=== PATIENT | male | born 1940 | race Caucasian/White ===

== ENCOUNTER 2018-08-01 10:14 | Inpatient (IN) | payer MEDICARE, OTHER ==
[2018-08-01] MEDS ORDERED: DILTIAZEM DRIP BOLUS FROM BAG 1 MG SOLN IV ONE ×2 (10:36→18:31)
[2018-08-01] MEDS ORDERED: SODIUM CHLORIDE 0.9% 1,000 ML IV STA (10:36)
[2018-08-01] MEDS ORDERED: ASPIRIN 81 MG PO STA (10:36)
[2018-08-01] MEDS ORDERED: HEPARIN SODIUM,PORCINE 5,000 UNIT/ML 1 ML VIAL IV ONE (10:39)
--- NOTE | 2018-08-01 10:39 | ED ---
Chest Pain HPI - General Chief Complaint: Chest Pain Stated Complaint: chest pain Time Seen by Provider: 08/01/18 10:26 Source: patient, RN notes reviewed Mode of arrival: ambulatory Limitations: no limitations - History of Present Illness Initial Comments: This is a 77-year-old male with no prior history of heart or lung disease was a nonsmoker who states he had the onset around 12 noon yesterday of a feeling of a heavy weight on his midsternal area. This did persist throughout the afternoon yesterday is currently gone we also noticed palpitations. He was seen by his doctor today and sent here for further evaluation. He denies any headache currently chest pain fevers chills nausea vomiting sweats he states at the time it happened he was shoveling mud admixture dirt and cold wet leaves. No cough or phlegm production no other symptoms reported this time no other modifying factors. He has no prior history of heart disease. MD Complaint: chest pain, other - Related Data Allergies Allergy/AdvReac Type Severity Reaction Status Date / Time Penicillins Allergy Unknown Verified 08/01/18 10:19 Sulfa (Sulfonamide Allergy Unknown Verified 08/01/18 10:19 Antibiotics) Review of Systems ROS Statement: Those systems with pertinent positive or pertinent negative responses have been documented in the HPI. ROS Other: All systems not noted in ROS Statement are negative. EKG Findings - EKG Results: EKG: interpreted by ALYSON (Atrial fibrillation with rapid ventricular response rate of 151 QRS duration 84 QT/QTC 292/462) Past Medical History Past Medical History: No Reported History History of Any Multi-Drug Resistant Organisms: None Reported Additional Past Surgical History / Comment(s): right shoulder Past Psychological History: No Psychological Hx Reported Smoking Status: Never smoker Past Alcohol Use History: Occasional Past Drug Use History: None Reported General Exam - General Exam Comments Initial Comments: This is a well-developed wall nourished awake alert oriented 3 male Limitations: no limitations General appearance: alert, in no apparent distress Head exam: Present: atraumatic, normocephalic, normal inspection Eye exam: Present: normal appearance, PERRL, EOMI. Absent: scleral icterus, conjunctival injection, periorbital swelling ENT exam: Present: normal exam, mucous membranes moist Neck exam: Present: normal inspection. Absent: tenderness, meningismus, lymphadenopathy Respiratory exam: Present: normal lung sounds bilaterally. Absent: respiratory distress, wheezes, rales, rhonchi, stridor Cardiovascular Exam: Present: tachycardia, irregular rhythm. Absent: systolic murmur, diastolic murmur, rubs, gallop, clicks GI/Abdominal exam: Present: soft, normal bowel sounds. Absent: distended, tenderness, guarding, rebound, rigid Extremities exam: Present: normal inspection, full ROM, normal capillary refill. Absent: tenderness, pedal edema, joint swelling, calf tenderness Back exam: Present: normal inspection Neurological exam: Present: alert, oriented X3, CN II-XII intact Psychiatric exam: Present: normal affect, normal mood Skin exam: Present: warm, dry, intact, normal color. Absent: rash Course Vital Signs 08/01/18 08/01/18 08/01/18 10:15 10:25 10:30 Temperature 98.1 F Pulse Rate 141 H 152 H 161 H Pulse Rate [ Finishing Trimmer ] Respiratory 18 13 9 L Rate Blood Pressure 128/87 121/68 O2 Sat by Pulse 97 73 L 96 Oximetry 08/01/18 08/01/18 08/01/18 10:45 11:00 11:29 Temperature Pulse Rate 158 H Pulse Rate [ 155 H Finishing Trimmer ] Respiratory 21 Rate Blood Pressure 120/58 O2 Sat by Pulse 96 Oximetry 08/01/18 08/01/18 11:48 12:05 Temperature Pulse Rate 138 H 130 H Pulse Rate [ Finishing Trimmer ] Respiratory 18 18 Rate Blood Pressure 98/74 97/79 O2 Sat by Pulse 98 97 Oximetry - Reevaluation(s) Reevaluation #1: 08/01/18 13:06 Reevaluation the patient apparently started the Cardizem reveals some diminishing blood pressure. He did require fluid challenge with correction of his blood pressure. He is asymptomatic at this time he still remains in atrial fibrillation. Chest Pain [facility] The patient was reevaluated on several occasions. He is trending down with respect to his heart rate. He will be admitted I discussed the case with Dr. Montanez. Cardiology will be consulted. The patient is hemodynamically stable at this time. He is asymptomatic but still remains in A. fib with RVR. Critical Care Time Critical Care Time: Yes Critical Care Time: 39 minutes of critical care time which includes initial presentation with history physical labs x-rays reevaluation patient on multiple occasions. Discussed with patient family regarding findings discussion with the admitting physician regarding the findings admission orders and documentation of the above. Disposition Clinical Impression: Rapid atrial fibrillation Disposition: ADMITTED IP TO THIS HOSP Condition: Stable Referrals: Dequan Yanez DO [Primary Care Provider] - 1-2 days
[2018-08-01] MEDS ORDERED: DILTIAZEM 50 MG in SODIUM CHLORIDE 0.9% 40 ML IV SCH (10:45)
[2018-08-01 11:01] LABS: Basophils % (A) 0 %; Eosinophils # (A) 0.1 k/uL (0-0.7); Eosinophils % (A) 2 %; HCT 48.3 % (39.0-53.0); HGB 15.9 gm/dL (13.0-17.5); Lymphocytes # (A) 1.5 k/uL (1.0-4.8); Lymphocytes % (A) 19 %; MCH 32.4 pg (25.0-35.0); MCV 98.2 fL (80.0-100.0); Mean Platelet Volume 7.4; Monocytes # (A) 0.6 k/uL (0-1.0); Monocytes % (A) 7 %; Neutrophils # (A) 5.6 k/uL (1.3-7.7); Neutrophils % (A) 71 %; Platelet Count 188 k/uL (150-450); RBC 4.92 m/uL (4.30-5.90); RDW 13.5 % (11.5-15.5); WBC 7.9 k/uL (3.8-10.6)
[2018-08-01 11:10] LABS: ALT 26 U/L (21-72); AST 24 U/L (17-59); Albumin 3.6 g/dL (3.5-5.0); Alkaline Phosphatase 56 U/L (38-126); Anion Gap 8 mmol/L; Blood Urea Nitrogen 18 mg/dL (9-20); Calcium 9.2 mg/dL (8.4-10.2); Carbon Dioxide 23 mmol/L (22-30); Chloride 109 mmol/L (98-107); Glucose 152 mg/dL (74-99); Partial Thromboplastin Time 22.8 sec (22.0-30.0); Potassium 4.3 mmol/L (3.5-5.1); Prothrombin Time 9.9 sec (9.0-12.0); Sodium 140 mmol/L (137-145); Total Bilirubin 0.7 mg/dL (0.2-1.3); Total Protein 6.4 g/dL (6.3-8.2)
--- NOTE | 2018-08-01 11:17 | XR ---
EXAMINATION TYPE: XR chest 2V DATE OF EXAM: 08/01/2018 HISTORY: dysrhythmia. REFERENCE: NONE. FINDINGS: The heart is normal in size. There is some atelectasis or scarring in the right midlung. Th e lungs are otherwise clear. Pleural spaces are clear. IMPRESSION: SCARRING VERSUS ATELECTASIS, RIGHT MIDLUNG.
[2018-08-01] MEDS: HEPARIN SOD,PORK IN 0.45% NACL 25,000 UNIT in 0.45% NACL 1 500ML.BAG IV SCH (11:37)
[2018-08-01 11:43] LABS: Creatine Kinase MB 2.7 ng/mL (0.0-2.4); Troponin I 0.025 ng/mL (0.000-0.034)
[2018-08-01] MEDS ORDERED: NALOXONE 0.4 MG/ML 1 ML VIAL IV PRN (13:09)
[2018-08-01 14:24] VITALS: BMI 40.2
--- NOTE | 2018-08-01 15:03 | P.HPIM ---
History of Present Illness H&P Date: 08/01/18 Chief Complaint: Chest heaviness Mr. Pimentel is a 77-year-old male with no prior medical history coming to the hospital with a chief complaint of feeling chest heaviness in the midsternal area since yesterday morning. 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 He mentions that he felt like a heavy object sitting on his chest and also he noticed some palpitations. Patient tried to get some rest but still did not get relief from his symptoms. Patient also started to have generalized weakness and felt dizzy. But there is no loss of consciousness. Patient denies having any history of smoking. He drinks alcohol very occasionally. Family history of coronary artery disease in his father and brother. Patient denies having any swelling of his lower extremities. Patient denies having any orthopnea PND. Patient denies having any fevers chills or rigors and no sick contacts. Patient denies having any abdominal pain nausea vomiting or diarrhea. No dysuria or hematuria. No focal weakness slurring of speech. No headaches or blurring of vision. In the Urgency department and the patient was found to have a trial fibrillation with rapid ventricular rate. EKG showing A. fib with heart rate at 1 50 bpm Chest x-ray showing right middle lung atelectasis. Patient has been started on Cardizem drip and heparin and admitted to the hospital for further evaluation and management. Review of Systems REVIEW OF SYSTEMS: PSYCH: No anxiety or depression NEURO:No c/o weakness of the extremties, No facial droop, No speech abnormalities. VASCULAR: no edema HEMATOLOGIC: No history of easy bleeding and bruising . No recent infections . RESPIRATORY: No cough, No SOB, No chest discomfort. IMMUNE: No infections INTEGUMENT: no rashes OPHTHALMOLOGIC: No blurry vision and no eye discharge : No dysuria or hematuria CARDIAC: Per HPI MUSCULOSKELETAL : No Aches or pains in the joints or muscles. GI: No abdominal pain, Nausea or vomiting. No constipation or diarrhea. All 13 review of systems are negative except for the ones mentioned above. Past Medical History Past Medical History: No Reported History History of Any Multi-Drug Resistant Organisms: None Reported Additional Past Surgical History / Comment(s): right shoulder Past Anesthesia/Blood Transfusion Reactions: No Reported Reaction Past Psychological History: No Psychological Hx Reported Smoking Status: Never smoker Past Alcohol Use History: Occasional Past Drug Use History: None Reported - Past Family History Mother Family Medical History: No Reported History Father Family Medical History: Coronary Artery Disease (CAD) Medications and Allergies Allergies Allergy/AdvReac Type Severity Reaction Status Date / Time Penicillins Allergy Unknown Verified 08/01/18 10:19 Sulfa (Sulfonamide Allergy Unknown Verified 08/01/18 10:19 Antibiotics) Physical Exam Vitals: Vital Signs Temp Pulse Pulse Resp BP BP Pulse Ox 08/01/18 14:32 98.3 F 133 H 16 119/80 98 08/01/18 13:55 98.3 F 133 H 16 119/80 98 08/01/18 13:20 97.9 F 133 H 18 104/53 95 08/01/18 13:10 140 H 18 113/77 97 08/01/18 12:50 128 H 20 105/88 98 08/01/18 12:40 146 H 19 103/88 97 08/01/18 12:30 133 H 18 134/82 97 08/01/18 12:20 138 H 18 94/77 95 08/01/18 12:05 130 H 18 97/79 97 08/01/18 11:48 138 H 18 98/74 98 08/01/18 11:29 120/58 08/01/18 11:00 158 H 21 96 08/01/18 10:45 155 H 08/01/18 10:30 161 H 9 L 121/68 96 08/01/18 10:25 152 H 13 73 L 08/01/18 10:15 98.1 F 141 H 18 128/87 97 Intake and Output 07/31/18 08/01/18 08/01/18 22:59 06:59 14:59 Other: Weight 116.5 kg GENERAL EXAM GEN. APPEARANCE: alert, in no apparent distress HEAD EXAM: atraumatic, normocephalic, normal inspection EYE EXAM: normal appearance, PERRL, EOMI. Absent: scleral icterus, conjunctival injection, periorbital swelling ENT EXAM: normal exam, mucous membranes moist NECK EXAM: normal inspection. Absent: tenderness, meningismus, full ROM, lymphadenopathy RESPIRATORY EXAM: normal lung sounds bilaterally. Absent: respiratory distress , wheezes, rales, rhonchi, stridor CARDIOVASCULAR EXAM: Tachycardic. Irregularly irregular GI/ABDOMINAL EXAM: soft, normal bowel sounds. Absent: distended, tenderness, guarding, rebound, rigid EXTREMITIES EXAM: Bilateral pitting edema. More on the left lower extremity than right. NEUROLOGICAL EXAM: alert, oriented X3, no focal neurological deficits PSYCHIATRIC EXAM: normal affect, normal mood SKIN EXAM: warm, dry, intact, normal color. Absent: rash Results CBC & Chem 7: 08/01/18 10:41 08/01/18 10:41 Labs: Abnormal Lab Results - Last 24 Hours (Table) 08/01/18 08/01/18 Range/Units 10:41 10:41 Chloride 109 H (98-107) mmol/L Glucose 152 H (74-99) mg/dL Total Creatine Kinase 243 H (55-170) U/L CK-MB (CK-2) 2.7 H (0.0-2.4) ng/mL Thrombosis Risk Factor Assmnt - Choose All That Apply Any of the Below Risk Factors Present?: No Each Risk Factor Represents 3 Points: Age 75 years or older Thrombosis Risk Factor Assessment Total Risk Factor Score: 3 Thrombosis Risk Factor Assessment Level: Moderate Risk Assessment and Plan Assessment: ASSESSMENT Atrial fibrillation with rapid ventricular rate Chronic bilateral lower extremity edema Right middle lobe atelectasis Morbid obesity with BMI of 40.2 Plan: Patient will be continued on Cardizem drip and heparin drip. We'll get an echocardiogram. We will get a bilateral lower extremity Doppler. Cardiology has been consulted. Further recommendations to follow depending on the progress of the patient. The treatment plan was discussed with the patient and his at the bedside in detail.
[2018-08-01] MEDS: SODIUM CHLORIDE 0.9% 1,000 ML IV SCH (16:14)
--- NOTE | 2018-08-01 17:33 | US ---
EXAMINATION TYPE: US venous doppler duplex LE DATE OF EXAM: 08/01/2018 4:57 PM COMPARISON: US CLINICAL HISTORY: new a fib. bilateral leg pain and swelling, patient on heparin starting today SIDE PERFORMED: Bilateral TECHNIQUE: The lower extremity deep venous system is examined utilizing real time linear array sonog sommer with graded compression, doppler sonography and color-flow sonography. VESSELS IMAGED: External Iliac Vein (EIV) Common Femoral Vein Deep Femoral Vein Greater Saphenous Vein * Femoral Vein Popliteal Vein Small Saphenous Vein * Proximal Calf Veins (* superficial vessels) Deep veins of the right leg show normal compressibility and color-flow, no abnormal luminal echoes. W ithin the left lower extremity deep vein there is abnormal low level internal echo at the femoral vei n which is eccentric, is not completely compressible, there is extension peripherally to the poplitea l vein with lack of compressibility and color flow present at the mid popliteal vein. Some laminar fl ow is noted peripherally and color-flow. Right Leg: Negative for DVT Left Leg: Positive for DVT, non occlusive DVT seen in the mid FV and the pop prox through proximal c long term veins. There is thrombus seen with limited compression. IMPRESSION: Deep venous arthrosis left lower extremity as described. A Red level critical message alert has been initiated for Judi Beyer via the [employer] Results System on 08/01/2018 5:31 PM. This message alert has been sent to Judi Beyer via t he preferences provided by the clinician for the receipt of Radiology Critical Findings. Message ID [id number].
[2018-08-01] MEDS: DILTIAZEM 50 MG in SODIUM CHLORIDE 0.9% 40 ML IV SCH ×2 (19:30→21:09)
--- NOTE | 2018-08-01 19:54 | CT ---
EXAMINATION TYPE: CT angio chest DATE OF EXAM: 08/01/2018 COMPARISON: Chest x-ray same date HISTORY: Current diagnosis of DVT, tachycardia. CT DLP: 624.7 mGycm Automated exposure control for dose reduction was used. CONTRAST: CTA scan of the thorax is performed with IV Contrast, patient injected with 100 mL of Isovue 370, pul monary embolism protocol. MIP images are created and reviewed. 3D reconstructed images are created on an independent workstation and reviewed. FINDINGS: There is some motion, artifact on the exam which may limit sensitivity. LUNGS: The lungs are grossly clear, there is no concerning parenchymal mass or nodule identified. Min imal dependent atelectatic changes are present. There is no pleural effusion or pneumothorax seen. The tracheobronchial tree is patent. AORTA: Root of the aorta measures approximately 4.7 cm. Proximal ascending aorta 4.4 cm. Proximal de scending aorta 4.3 cm.. Aorta is not optimally enhanced. MEDIASTINUM: There is satisfactory enhancement of the pulmonary artery and its central branches, ther e is no CT evidence for pulmonary embolism. Segmental branches are not well visualized and there enti rety however There are no greater than 1 cm hilar or mediastinal lymph nodes. Pulmonary artery is en larged, correlate for possible pulmonary artery hypertension. No pericardial effusion is seen. There are coronary artery calcifications present. The heart is enlarged. OTHER: Low dense foci are present within the liver which statistically are likely to represent cysts . There is a small hiatal hernia. There is elevation of the right hemidiaphragm. IMPRESSION: NO EVIDENT PULMONARY EMBOLISM WITH LIMITATIONS DESCRIBED. AORTIC ANEURYSM. Additional findings abo ve.
[2018-08-01] MEDS: HEPARIN SODIUM,PORCINE 5,000 UNIT/ML 1 ML VIAL IV PRN (20:07)
[2018-08-02] MEDS: DILTIAZEM 50 MG in SODIUM CHLORIDE 0.9% 40 ML IV SCH ×3 (01:28→08:52)
[2018-08-02] MEDS: HEPARIN SOD,PORK IN 0.45% NACL 25,000 UNIT in 0.45% NACL 1 500ML.BAG IV SCH ×2 (04:54→19:17)
[2018-08-02] MEDS: SODIUM CHLORIDE 0.9% 1,000 ML IV SCH ×2 (04:56→16:53)
[2018-08-02 08:15] LABS: Basophils % (A) 0 %; Eosinophils # (A) 0.1 k/uL (0-0.7); Eosinophils % (A) 1 %; HCT 46.3 % (39.0-53.0); HGB 15.1 gm/dL (13.0-17.5); Lymphocytes # (A) 1.5 k/uL (1.0-4.8); Lymphocytes % (A) 15 %; MCH 32.6 pg (25.0-35.0); MCHC 32.5 g/dL (31.0-37.0); MCV 100.1 fL (80.0-100.0); Mean Platelet Volume 7.3; Monocytes # (A) 0.7 k/uL (0-1.0); Monocytes % (A) 7 %; Neutrophils # (A) 7.5 k/uL (1.3-7.7); Neutrophils % (A) 75 %; Platelet Count 203 k/uL (150-450); RBC 4.62 m/uL (4.30-5.90); RDW 13.6 % (11.5-15.5)
[2018-08-02] MEDS: HEPARIN SODIUM,PORCINE 5,000 UNIT/ML 1 ML VIAL IV PRN (08:47)
[2018-08-02 08:56] LABS: Anion Gap 6 mmol/L; Blood Urea Nitrogen 13 mg/dL (9-20); Calcium 8.8 mg/dL (8.4-10.2); Carbon Dioxide 25 mmol/L (22-30); Chloride 107 mmol/L (98-107); Glucose 109 mg/dL (74-99); Potassium 4.3 mmol/L (3.5-5.1); Sodium 138 mmol/L (137-145)
[2018-08-02] MEDS ORDERED: ALPRAZolam 0.5 MG TAB PO PRN (10:49)
[2018-08-02] MEDS ORDERED: ALPRAZolam 0.25 MG TAB PO PRN (10:49)
[2018-08-02] MEDS ORDERED: NITROGLYCERIN SL TABS 0.4 MG TAB SUBLINGUAL PRN (10:49)
--- NOTE | 2018-08-02 11:08 | P.CRDCN ---
History of Present Illness Consult date: 08/02/18 Requesting physician: Judi Beyer Reason for Consult (text): rapid atrial fibrillation Chief complaint: chest heaviness History of present illness: This is a pleasant 77-year-old gentleman who denies significant past medical history but also does not go to doctors regularly. Initially presented to his primary care physician's office due to complaints of midsternal chest heaviness and wooziness with exertion that started a couple days ago. Upon presentation to his primary care physician's office, he was found to be in atrial fibrillation with rapid ventricular response, new onset. He also been complaining of some lower extremity edema that started mostly in his left leg in December after a long trip, apparently she was seen by primary care and told there was no issues. Chest x-ray on admission showed scarring versus atelectasis, right mid lung. EKG showed atrial fibrillation with rapid ventricular response. Lower extremity venous Doppler showed positive for DVT in the left leg. CTA of the chest showed root of the aorta and measures approximately 4.7 cm, proximal descending aorta 4.4 cm, proximal descending aorta 4.[address] evidence for pulmonary embolism. Labs show potassium 4.3, when necessary 18, creatinine 0.94, magnesium of 2.0 and troponin of 0.025. Upon examination, patient is resting comfortably in bed. He does continue to complain of some mild chest pressure. He is on Cardizem drip at 10 and heparin IV. Past Medical History Past Medical History: No Reported History History of Any Multi-Drug Resistant Organisms: None Reported Additional Past Surgical History / Comment(s): right shoulder Past Anesthesia/Blood Transfusion Reactions: No Reported Reaction Past Psychological History: No Psychological Hx Reported Smoking Status: Never smoker Past Alcohol Use History: Occasional Past Drug Use History: None Reported - Past Family History Mother Family Medical History: No Reported History Father Family Medical History: Coronary Artery Disease (CAD) Medications and Allergies Home Medications Medication Instructions Recorded Confirmed Type No Known Home Medications 08/01/18 08/01/18 History Allergies Allergy/AdvReac Type Severity Reaction Status Date / Time Penicillins Allergy Unknown Verified 08/01/18 15:52 Sulfa (Sulfonamide Allergy Unknown Verified 08/01/18 15:52 Antibiotics) Physical Exam Vitals: Vital Signs Temp Pulse Pulse Resp BP BP BP 08/02/18 08:09 98.2 F 129 H 16 118/75 08/02/18 03:25 114 H 17 08/02/18 03:23 98.5 F 114 H 17 125/75 08/01/18 23:48 124 H 17 08/01/18 23:46 98.6 F 124 H 17 110/80 08/01/18 20:00 98.6 F 116 H 18 124/77 08/01/18 16:00 97.7 F 138 H 16 144/87 08/01/18 14:32 98.3 F 133 H 16 119/80 08/01/18 13:55 98.3 F 133 H 16 119/80 08/01/18 13:20 97.9 F 133 H 18 104/53 08/01/18 13:10 140 H 18 113/77 08/01/18 12:50 128 H 20 105/88 08/01/18 12:40 146 H 19 103/88 08/01/18 12:30 133 H 18 134/82 08/01/18 12:20 138 H 18 94/77 08/01/18 12:05 130 H 18 97/79 Pulse Ox 08/02/18 08:09 96 08/02/18 03:25 08/02/18 03:23 97 08/01/18 23:48 08/01/18 23:46 95 08/01/18 20:00 95 08/01/18 16:00 100 08/01/18 14:32 98 08/01/18 13:55 98 08/01/18 13:20 95 08/01/18 13:10 97 08/01/18 12:50 98 08/01/18 12:40 97 08/01/18 12:30 97 08/01/18 12:20 95 08/01/18 12:05 97 Intake and Output 08/01/18 08/02/18 08/02/18 23:59 06:59 14:59 Intake Total 172.726 Balance 172.726 Intake: Intake, IV Titration 172.726 Amount Diltiazem 50 mg In Sodium 39.833 Chloride 0.9% 40 ml @ 10 MG/HR 10 mls/hr IV .Q5H [facility] Rx#:[id number] Heparin Sod,Pork in 0.45% 132.893 NaCl 25,000 unit In 0.45 % NaCl 1 500ml.bag @ 8.5 UNITS/KG/HR 19.89 mls/hr IV .Q24H [facility] Rx#: [id number] Sodium Chloride 0.9% 1, 000 ml @ 80 mls/hr IV . [id number] GARRY Rx#:[id number] Oral Other: Voiding Method Toilet # Voids Weight PHYSICAL EXAMINATION: HEENT: Head is atraumatic, normocephalic. Pupils equal, round. Neck is supple. There is no elevated jugular venous pressure. HEART EXAMINATION: Heart sounds irregularly irregular, S1 and S2 normal. No murmur or gallop heard. Tachycardia noted. CHEST EXAMINATION: Lungs are clear to auscultation and precussion. No chest wall tenderness is noted on palpation or with deep breathing. ABDOMEN: Soft, obese, nontender. Bowel sounds are heard. No organomegaly noted. EXTREMITIES: 2+ peripheral pulses with no evidence of peripheral edema and no calf tenderness noted. NEUROLOGIC patient is awake, alert and oriented x3. . Results 08/02/18 08:02 08/02/18 08:02 Coagulation 08/01/18 08/02/18 08/02/18 Range/Units 18:24 01:25 EST 08:02 APTT 27.3 35.7 H 39.5 H (22.0-30.0) sec CBC 08/02/18 Range/Units 08:02 WBC 10.0 (3.8-10.6) k/uL RBC 4.62 (4.30-5.90) m/uL Hgb 15.1 (13.0-17.5) gm/dL Hct 46.3 (39.0-53.0) % Plt Count 203 (150-450) k/uL Comprehensive Metabolic Panel 08/02/18 Range/Units 08:02 Sodium 138 (137-145) mmol/L Potassium 4.3 (3.5-5.1) mmol/L Chloride 107 (98-107) mmol/L Carbon Dioxide 25 (22-30) mmol/L BUN 13 (9-20) mg/dL Creatinine 0.82 (0.66-1.25) mg/dL Glucose 109 H (74-99) mg/dL Calcium 8.8 (8.4-10.2) mg/dL Current Medications Generic Name Dose Route Start Last Admin Trade Name Freq PRN Reason Stop Dose Admin Alprazolam 0.25 mg 08/02/18 10:49 Xanax PO Q6HR PRN Mild Anxiety Alprazolam 0.5 mg 08/02/18 10:49 Xanax PO Q6HR PRN Moderate Anxiety Aspirin 81 mg 08/02/18 10:30 Aspirin PO DAILY [facility] Aspirin 325 mg 08/03/18 06:00 Aspirin PO 08/03/18 06:01 ONCE ONE Atorvastatin Calcium 80 mg 08/03/18 06:00 Lipitor PO 08/03/18 06:01 ONCE ONE Heparin Sodium (Porcine) 0 unit 08/01/18 19:44 08/02/18 08:47 Heparin IV 5,850 unit PER PROTOCOL PRN Administration Low PTT Protocol Heparin Sodium/Sodium Chloride 500 mls @ 19.89 mls/hr 08/01/18 10:45 08:49 25,000 unit/ Sodium Chloride IV 17.5 units/kg/hr .Q24H GARRY 40.95 mls/hr Titration Protocol 8.5 UNITS/KG/HR Sodium Chloride 1,000 mls @ 80 mls/hr 08/01/18 13:15 08/02/18 04:56 Saline 0.9% IV 80 mls/hr .[id number] [facility] Administration Diltiazem HCl 50 mg/ Sodium 50 mls @ 10 mls/hr 08/01/18 19:15 08/02/18 08:52 Chloride IV 10 mg/hr .Q5H [facility] 10 mls/hr Administration 10 MG/HR Metoprolol Tartrate 25 mg 08/02/18 10:30 Lopressor PO BID [facility] Naloxone HCl 0.2 mg 08/01/18 13:09 Narcan IV Q2M PRN Opioid Reversal Nitroglycerin 0.4 mg 08/02/18 10:49 Nitrostat SUBLINGUAL Q5M PRN Chest Pain Intake and Output 08/01/18 08/02/18 08/02/18 23:59 06:59 14:59 Intake Total 172.726 Balance 172.726 Intake: Intake, IV Titration 172.726 Amount Diltiazem 50 mg In Sodium 39.833 Chloride 0.9% 40 ml @ 10 MG/HR 10 mls/hr IV .Q5H [facility] Rx#:[id number] Heparin Sod,Pork in 0.45% 132.893 NaCl 25,000 unit In 0.45 % NaCl 1 500ml.bag @ 8.5 UNITS/KG/HR 19.89 mls/hr IV .Q24H [facility] Rx#: [id number] Sodium Chloride 0.9% 1, 000 ml @ 80 mls/hr IV . [id number] [facility] Rx#:[id number] Oral Other: Voiding Method Toilet # Voids Weight 08/02/18 08:02 08/02/18 08:02 Assessment and Plan Assessment: #1 atrial fibrillation with rapid ventricular response, unknown duration #2 symptoms of chest heaviness and wooziness activity #3 left lower extremity DVT #4 aortic aneurysm Plan: From cardiology's perspective, we will add beta timoteo. Continue IV heparin and Cardizem at this time. We'll schedule the patient for cardiac catheterization via left radial tomorrow with Dr. Schulz. We'll also order 2-D echo with Doppler. Further recommendations to follow. COATING SUPERVISOR note has been reviewed, I agree with a documented findings and plan of care. Patient was seen and examined.
[2018-08-02 12:39] LABS: Cholesterol 144 mg/dL (<200); HDL Cholesterol 53 mg/dL (40-60); LDL Cholesterol,Calculated 79 mg/dL (0-99); Triglycerides 60 mg/dL (<150)
[2018-08-02] MEDS: METOPROLOL TARTRATE 25 MG TAB PO SCH ×2 (14:19→20:46)
[2018-08-02] MEDS: ASPIRIN 81 MG PO SCH (14:19)
--- NOTE | 2018-08-02 14:26 | P.PN ---
Subjective Progress Note Date: 08/02/18 Mr. Pimentel is a 77-year-old male with no prior medical history coming to the hospital with a chief complaint of feeling chest heaviness in the midsternal area since yesterday morning. 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 He mentions that he felt like a heavy object sitting on his chest and also he noticed some palpitations. Patient tried to get some rest but still did not get relief from his symptoms. Patient also started to have generalized weakness and felt dizzy. But there is no loss of consciousness. Patient denies having any history of smoking. He drinks alcohol very occasionally. Family history of coronary artery disease in his father and brother. Patient denies having any orthopnea PND. Patient denies having any fevers chills or rigors and no sick contacts. In the ED the patient was found to have a trial fibrillation with rapid ventricular rate. EKG showing A. fib with heart rate at 150 bpm Chest x-ray showing right middle lung atelectasis. Patient has been started on Cardizem drip and heparin and admitted to the hospital for further evaluation and management. As the patient had bilateral lower extremity edema-Doppler of the lower extremities was obtained that was positive for DVT in the left lower extremity. So the patient got a CT for PE yesterday-that is negative for pulmonary embolism. Overnight no active issues. This morning patient is lying comfortably in the bed. His is at the bedside. Patient denies having any chest pain, palpitation, difficulty in breathing. No fevers chills or rigors. No abdominal pain nausea vomiting or diarrhea. No dysuria or hematuria. Objective - Vital Signs Vital signs: Vital Signs Temp 97.8 F 08/02/18 12:19 Pulse 129 H 08/02/18 12:19 Resp 17 08/02/18 12:19 BP 139/84 08/02/18 12:19 Pulse Ox 98 08/02/18 12:19 Intake & Output 08/01/18 08/02/18 08/02/18 19:59 06:59 18:59 Intake Total 394.726 Balance 394.726 Weight Intake: Intake, IV Titration 172.726 Amount Diltiazem 50 mg In Sodium 39.833 Chloride 0.9% 40 ml @ 10 MG/HR 10 mls/hr IV .Q5H GARRY Rx#:[id number] Heparin Sod,Pork in 0.45% 132.893 NaCl 25,000 unit In 0.45 % NaCl 1 500ml.bag @ 8.5 UNITS/KG/HR 19.89 mls/hr IV .Q24H GARRY Rx#: [id number] Sodium Chloride 0.9% 1, 000 ml @ 80 mls/hr IV . [id number] GARRY Rx#:[id number] Oral 222 Other: Voiding Method Toilet # Voids 4 - Exam GEN. APPEARANCE: alert, in no apparent distress HEAD EXAM: atraumatic, normocephalic, normal inspection EYE EXAM: normal appearance, PERRL, EOMI. Absent: scleral icterus, conjunctival injection, periorbital swelling ENT EXAM: normal exam, mucous membranes moist NECK EXAM: normal inspection. Absent: tenderness, meningismus, full ROM, lymphadenopathy RESPIRATORY EXAM: normal lung sounds bilaterally. Absent: respiratory distress , wheezes, rales, rhonchi, stridor CARDIOVASCULAR EXAM: Tachycardic. Irregularly irregular GI/ABDOMINAL EXAM: soft, normal bowel sounds. Absent: distended, tenderness, guarding, rebound, rigid EXTREMITIES EXAM: Bilateral pitting edema. More on the left lower extremity than right. Less compared to yesterday. NEUROLOGICAL EXAM: alert, oriented X3, no focal neurological deficits PSYCHIATRIC EXAM: normal affect, normal mood SKIN EXAM: warm, dry, intact, normal color. Absent: rash - Labs CBC & Chem 7: 08/02/18 08:02 08/02/18 08:02 Labs: Abnormal Lab Results - Last 24 Hours (Table) 08/02/18 08/02/18 08/02/18 Range/Units 01:25 EST 08:02 08:02 MCV 100.1 H (80.0-100.0) fL APTT 35.7 H (22.0-30.0) sec Glucose 109 H (74-99) mg/dL 08/02/18 Range/Units 08:02 MCV (80.0-100.0) fL APTT 39.5 H (22.0-30.0) sec Glucose (74-99) mg/dL Assessment and Plan Assessment: ASSESSMENT Atrial fibrillation with rapid ventricular rate Left lower extremity DVT Chronic bilateral lower extremity edema Right middle lobe atelectasis Aortic aneurysm Morbid obesity with BMI of 40.2 Plan: Patient will be continued on Cardizem drip and heparin drip. Echocardiogram pending. Cardiology has been consulted - patient is scheduled for a cardiac cath tomorrow morning. Further recommendations to follow depending on the progress of the patient. The treatment plan was discussed with the patient and his at the bedside in detail.
[2018-08-03 00:50] VITALS: RESP 17
[2018-08-03 04:56] VITALS: PULSE 62; TEMP 98.2
[2018-08-03] MEDS ORDERED: ATORVASTATIN 80 MG TAB PO ONE (06:00)
[2018-08-03] MEDS ORDERED: ASPIRIN 325 MG TAB PO ONE (06:00)
[2018-08-03] MEDS: METOPROLOL TARTRATE 25 MG TAB PO SCH (06:11)
[2018-08-03] MEDS: SODIUM CHLORIDE 0.9% 1,000 ML IV SCH (06:12)
[2018-08-03 06:14] LABS: Basophils % (A) 0 %; Eosinophils # (A) 0.2 k/uL (0-0.7); Eosinophils % (A) 3 %; HCT 47.3 % (39.0-53.0); HGB 15.7 gm/dL (13.0-17.5); Lymphocytes # (A) 1.2 k/uL (1.0-4.8); Lymphocytes % (A) 19 %; MCH 32.8 pg (25.0-35.0); MCHC 33.3 g/dL (31.0-37.0); MCV 98.6 fL (80.0-100.0); Mean Platelet Volume 7.6; Monocytes # (A) 0.5 k/uL (0-1.0); Monocytes % (A) 8 %; Neutrophils # (A) 4.5 k/uL (1.3-7.7); Neutrophils % (A) 68 %; Platelet Count 178 k/uL (150-450); RDW 13.3 % (11.5-15.5); WBC 6.7 k/uL (3.8-10.6)
[2018-08-03 06:45] LABS: Anion Gap 7 mmol/L; Blood Urea Nitrogen 14 mg/dL (9-20); Calcium 8.9 mg/dL (8.4-10.2); Carbon Dioxide 25 mmol/L (22-30); Chloride 108 mmol/L (98-107); Glucose 108 mg/dL (74-99); Potassium 4.6 mmol/L (3.5-5.1); Sodium 140 mmol/L (137-145)
[2018-08-03] MEDS: ASPIRIN 81 MG PO SCH (07:43)
[2018-08-03] MEDS ORDERED: IV FLUID CONTINUATION 950 ML IV ONE (07:55)
[2018-08-03] MEDS ORDERED: fentaNYL (PF) 50 MCG/ML 2 ML AMP IVP ONE (08:38)
[2018-08-03] MEDS ORDERED: LIDOCAINE 1% INJ 10MG/ML (20 ML MDV) SQ ONE (08:42)
[2018-08-03] MEDS ORDERED: MIDAZOLAM 2 MG/2 ML VIAL IV ONE (08:44)
[2018-08-03] MEDS ORDERED: VERAPAMIL SYRINGE (5 MG/10 ML) INTRAARTER ONE (08:44)
[2018-08-03] MEDS ORDERED: HEPARIN SODIUM 1,000 UN/ML (10ML VL) IV ONE (08:53)
[2018-08-03] MEDS ORDERED: IOPAMIDOL-370 125ML BTL INJ ONE (08:56)
[2018-08-03] MEDS ORDERED: RX INFO: IV CONTRAST WAS GIVEN 1 EACH MISC MISCELLANE PRN (09:08)
[2018-08-03] MEDS ORDERED: SODIUM CHLORIDE 0.9% 1,000 ML IV SCH (09:15)
--- NOTE | 2018-08-03 09:49 | CC ---
CARDIAC CATHETERIZATION REPORT Mr. Pimentel is a 77-year-old male with no prior documented history of cardiac disease who presented with symptoms of chest discomfort and atrial fibrillation of unknown duration. The patient is usually active physically, has no associated symptoms. His cardiac enzymes revealed no evidence of significant changes, but in view of his presentation and his symptoms recommendation was made regarding cardiac catheterization. The procedure as well as risks and complications were discussed with the patient who is in full understanding and agreement. PROCEDURE: Patient was brought to cardiac cath lab radiology technologist in a fasting semi-sedated state after receiving fentanyl and Benadryl and achieving moderate conscious sedated state. Using Xylocaine anesthesia in the Seldinger technique, a 6-Slovak sheath was introduced in the right radial artery. Selective right and left coronary angiography was performed using 5- Slovak 3.5 bend right and left Nixon catheters. Multiple views of the coronary artery including hemiaxial views obtained. Following that, 5-Slovak tight pigtail catheter introduced in the system and a GREEK view of the ascending aorta was performed. Following that, catheter and sheaths were removed. Hemostasis was obtained with deployment of TR band. There was no immediate complication. Patient was returned to his room in stable condition. Of note, the patient received 5000 units of intravenous heparin as well as intra-arterial verapamil. FINDINGS: FLUOROSCOPY: There was severe calcification involving the LAD and the left main. LEFT MAIN: This is a large-sized vessel trifurcating in the left circumflex, left anterior descending artery and ramus intermedius. Left main coronary artery has no evidence of high-grade stenosis. LEFT ANTERIOR DESCENDING ARTERY: This is a large-sized vessel reaching toward the apex with a wraparound apex segment giving rise to a very proximal diagonal branch. The left anterior descending artery is calcified proximally. It has about a 30% to 40% plaque proximally and mild intimal disease throughout its course. The diagonal branch has diffuse intimal disease as well up to 30% to 40%. LEFT CIRCUMFLEX: This is a nondominant vessel, large in caliber giving rise to a large obtuse marginal branch. The left circumflex proximally has a 40% plaque with diffuse intimal disease in its course, but no evidence of high-grade stenosis. RAMUS INTERMEDIUS: This is a small size vessel that has intimal disease without any evidence of high-grade stenosis. RIGHT CORONARY ARTERY: This is a large dominant vessel, bifurcating in PDA and posterolateral segment and branches. The right coronary artery has diffuse mild intimal disease without any evidence of high-grade stenosis. LEFT VENTRICULOGRAM: Left ventriculogram was not performed. AORTOGRAM: Aortogram was performed in the GREEK view and revealed a tricuspid aortic valve with dilatation of the ascending aorta, but no evidence of significant aortic regurgitation. CONCLUSION: 1. Calcified coronary arteries. 2. 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 3. Dilated ascending aorta with no evidence of significant aortic regurgitation. RECOMMENDATION: In view of finding anatomy, I recommend continue medical therapy with aggressive coronary risk modifications being initiated. Those findings and recommendations were discussed with the patient and his family and are in full understanding and agreement. Duration of procedure is 20 minutes. MMODL / IJN: [id number] /
--- NOTE | 2018-08-03 10:04 | ECHOF ---
Referral Reason:Rapid atrial fibrillation MEASUREMENTS -------- HEIGHT: 170.2 cm WEIGHT: 117.0 kg BP: IVSd: 1.6 cm (0.6 - 1.1) LVIDd: 3.7 cm (3.9 - 5.3) LVPWd: 1.7 cm (0.6 - 1.1) IVSs: 1.8 cm LVIDs: 3.5 cm LVPWs: 2.1 cm LA Diam: 4.7 cm (2.7 - 3.8) LAESV Index (A-L): 36.35 ml/m Ao Diam: 4.5 cm (2.0 - 3.7) MV E Ga: 0.78 m/s MV DecT: 204 ms MV A Ga: 0.21 m/s MV E/A Ratio: 3.73 AV maxP.14 mmHg AV meanP.86 mmHg RAP: 5.00 mmHg RVSP: 20.82 mmHg FINDINGS -------- Sinus rhythm. This was a technically adequate study. There is moderate concentric left ventricular hypertrophy. Overall left ventricular systolic functi on is low-normal with, an EF between 50 - 55 %. The right ventricle is normal in size. The left atrium is moderately dilated. The right atrial size is normal. There is mild aortic valve sclerosis. Mild aortic stenosis with peak/mean pressure gradient of 15.1 4mmHg / 9.86mmHg , the aortic valve area by continuity equation is {JAM}. Peak/mean gradient across the Aortic Valve is 15.14mmHg / 9.86mmHg. Aov is stenotic with decrease opening. Mild mitral annular calcification present. No mitral regurgitation. Mild tricuspid regurgitation present. There is no evidence of pulmonary hypertension. The right v entricular systolic pressure, as measured by Doppler, is 20.82mmHg. There is no pulmonic regurgitation present. Aortic Root is dilated and measures 4.5cm. There is no pericardial effusion. CONCLUSIONS -------- 1. The right ventricle is normal in size. 2. The left atrium is moderately dilated. 3. The right atrial size is normal. 4. There is mild aortic valve sclerosis. 5. Mild aortic stenosis with peak/mean pressure gradient of 15.14mmHg / 9.86mmHg , the aortic valve a jose by continuity equation is {JAM}. 6. Peak/mean gradient across the Aortic Valve is 15.14mmHg / 9.86mmHg. 7. Aov is stenotic with decrease opening. 8. Mild mitral annular calcification present. 9. No mitral regurgitation. 10. Mild tricuspid regurgitation present. 11. There is no evidence of pulmonary hypertension. 12. The right ventricular systolic pressure, as measured by Doppler, is 20.82mmHg. 13. There is no pulmonic regurgitation present. 14. Aortic Root is dilated and measures 4.5cm. 15. There is no pericardial effusion. MICROFILM MACHINE OPERATOR: Rufina Matthews RDCS
[2018-08-03 11:29] VITALS: BP 150/90
[2018-08-03] MEDS ORDERED: APIXABAN 5 MG TAB PO SCH (12:30)
[2018-08-03] MEDS ORDERED: RIVAROXABAN 20 MG TAB PO SCH (17:30)
[2018-08-04] MEDS ORDERED: ATORVASTATIN 40 MG TAB PO SCH (09:00)
--- NOTE | 2018-08-05 00:04 | P.DS ---
Providers Date of admission: 08/01/18 13:11 Expected date of discharge: 08/03/18 Attending physician: Vikash Montanez Consults: 08/01/18 13:10 Consult Physician Routine Consulting Provider: Venancio Ramirez Consult Reason/Comments: Rapid atrial fibrillation Do you want consulting provider notified?: Yes [facility] Course: Discharge diagnosis Atrial fibrillation with rapid ventricular rate. Unknown duration Left lower extremity DVT Chronic bilateral lower extremity edema Right middle lobe atelectasis Aortic aneurysm Morbid obesity with BMI of 40.2 Hospital course Mr. Pimentel is a 77-year-old male with no prior medical history coming to the hospital with a chief complaint of feeling chest heaviness in the midsternal area since yesterday morning. 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 He mentions that he felt like a heavy object sitting on his chest and also he noticed some palpitations. Patient tried to get some rest but still did not get relief from his symptoms. Patient also started to have generalized weakness and felt dizzy. But there is no loss of consciousness. Patient denies having any history of smoking. He drinks alcohol very occasionally. Family history of coronary artery disease in his father and brother. Patient denies having any orthopnea PND. Patient denies having any fevers chills or rigors and no sick contacts. In the ED the patient was found to have a trial fibrillation with rapid ventricular rate. EKG showing A. fib with heart rate at 150 bpm Chest x-ray showing right middle lung atelectasis. Patient has been started on Cardizem drip and heparin and admitted to the hospital for further evaluation and management. As the patient had bilateral lower extremity edema-Doppler of the lower extremities was obtained that was positive for DVT in the left lower extremity. So the patient got a CT for PE yesterday-that is negative for pulmonary embolism. Patient was continued on Cardizem drip and heparin drip. Echocardiogram showed ejection fraction 50-55%. Moderately dilated left atrium. Patient was seen by cardiology and cardiac catheterization was done. Showed severe calcifications in the left main and LAD. Maximal medical therapy was recommended. Patient is currently chest pain-free. Patient denied any other complaints at this time. Heart rate is well controlled. Patient is stable to be discharged home. Patient be continued on anticoagulation with Eliquis. Physical examination GEN. APPEARANCE: alert, in no apparent distress HEAD EXAM: atraumatic, normocephalic, normal inspection EYE EXAM: normal appearance, PERRL, EOMI. Absent: scleral icterus, conjunctival injection, periorbital swelling ENT EXAM: normal exam, mucous membranes moist NECK EXAM: normal inspection. Absent: tenderness, meningismus, full ROM, lymphadenopathy RESPIRATORY EXAM: normal lung sounds bilaterally. Absent: respiratory distress , wheezes, rales, rhonchi, stridor CARDIOVASCULAR EXAM: Tachycardic. Irregularly irregular GI/ABDOMINAL EXAM: soft, normal bowel sounds. Absent: distended, tenderness, guarding, rebound, rigid EXTREMITIES EXAM: Bilateral pitting edema. More on the left lower extremity than right. Less compared to yesterday. NEUROLOGICAL EXAM: alert, oriented X3, no focal neurological deficits PSYCHIATRIC EXAM: normal affect, normal mood SKIN EXAM: warm, dry, intact, normal color. Absent: rash Vitals reviewed. Patient Condition at Discharge: Stable Plan - Discharge Summary Discharge Rx Participant: No New Discharge Prescriptions: New Apixaban [Eliquis] 5 mg PO BID tab Aspirin 81 mg PO DAILY #30 chew Atorvastatin [Lipitor] 40 mg PO DAILY #30 tab Metoprolol Tartrate [Lopressor] 25 mg PO BID #60 tab Discharge Medication List Apixaban [Eliquis] 5 mg PO BID tab 08/03/18 [Rx] Aspirin 81 mg PO DAILY #30 chew 08/03/18 [Rx] Atorvastatin [Lipitor] 40 mg PO DAILY #30 tab 08/03/18 [Rx] Metoprolol Tartrate [Lopressor] 25 mg PO BID #60 tab 08/03/18 [Rx] Follow up Appointment(s)/Referral(s): Tommy Schulz MD [STAFF PHYSICIAN] - 1 Week (Spoke to information receptionist. Office will call with appointment time) Dequan Yanez DO [Primary Care Provider] - 08/11/18 1:00 pm (Friday) Patient Instructions/Handouts: *Surgery [facility] - After Heart Catheterization - Log Preparer Instructions, A-fib (Atrial Fibrillation) ([facility]), Left Heart Catheterization ([facility]), Safe Use of Anticoagulants ([facility]) Activity/Diet/Wound Care/Special Instructions: pt has 30 day supply of eliquis filled in [facility] pharmacy, pt instructed to follow up with his billing typist for possible samples at [facility] Discharge Disposition: HOME SELF-CARE
== END 2018-08-03 15:54 | disposition home or self-care (01) | DRG 287 ==
LOC: EC 10:14 → 3SCARD 13:11
PROVIDERS: ADMIT Internal Medicine; ATTEND Internal Medicine
PROC: 4A023N7 Measurement of Cardiac Sampling and Pressure, Left Heart, Percutaneous Approach (ICD-10-PCS; principal; 2018-08-03 07:55)
PROC: B2111ZZ Fluoroscopy of Multiple Coronary Arteries using Low Osmolar Contrast (ICD-10-PCS; principal; 2018-08-03 07:55)
DX: I48.91 Unspecified atrial fibrillation (principal); J98.11 Atelectasis; Z68.41 Body mass index [BMI] 40.0-44.9, adult; I82.432 Acute embolism and thrombosis of left popliteal vein; I82.412 Acute embolism and thrombosis of left femoral vein; E66.01 Morbid (severe) obesity due to excess calories; I25.10 Atherosclerotic heart disease of native coronary artery without angina pectoris; I71.9 Aortic aneurysm of unspecified site, without rupture; Z88.0 Allergy status to penicillin; Z88.2 Allergy status to sulfonamides; Z82.49 Family history of ischemic heart disease and other diseases of the circulatory system; F41.9 Anxiety disorder, unspecified; I25.84 Coronary atherosclerosis due to calcified coronary lesion
CPT/HCPCS: 36415; 71046; 71275; 80048; 80053; 80061; 82550; 82553; 83735; 84443; 84484; 85025; 85610; 85730; 93306; 93970; 96365; 96366; 96376; 99291

== ENCOUNTER → 2022-04-29 | Outpatient (CLI) | payer MEDICARE, OTHER ==
--- NOTE | 2022-04-29 17:14 | XR ---
EXAMINATION TYPE: XR toes RT DATE OF EXAM: 04/29/2022 COMPARISON: NONE HISTORY: 81-year-old male with pain after [id number] INJURY GREAT TOE RT TECHNIQUE: 2 views coned on right great toe FINDINGS: Osteopenia. There is dorsal soft tissue swelling. Osteopenia. Subtle cortical step off along the late ral margin of the first proximal phalangeal neck on the AP view. IMPRESSION: Osteopenia limiting assessment. Unable to exclude a subtle nondisplaced cortical fracture along the l ateral margin of the first proximal phalangeal neck.
== END | disposition home or self-care (01) ==
LOC: RADXRYALE 10:59
PROVIDERS: ATTEND Family Medicine
DX: Z12.31 Encounter for screening mammogram for malignant neoplasm of breast (principal)

== ENCOUNTER → 2023-07-07 | Outpatient (CLI) | payer MEDICARE, OTHER ==
--- NOTE | 2023-07-07 09:45 | XR ---
EXAMINATION TYPE: XR hand complete RT DATE OF EXAM: 07/07/2023 9:23 AM INDICATION: Patient age:Male; 82 years old; Reason for study: [id number] RT HAND PAIN; [facility]. COMPARISON: None TECHNIQUE: Frontal, lateral and oblique views of the right hand were obtained. FINDINGS: No acute fracture or dislocation. Mild joint space narrowing with sclerosis involving the f irst through fifth digit DIP, PIP joints and first through third MCP joint. No osseous erosions. Mild swelling of the second digit. No radiopaque foreign bodies. IMPRESSION: 1. No acute osseous pathology. 2. Mild soft tissue swelling of the second digit. No radiopaque foreign bodies. 3. Mild osteoarthritic changes.
== END | disposition home or self-care (01) ==
LOC: RADXRYALE 09:10
PROVIDERS: ATTEND Family Medicine
DX: M19.041 Primary osteoarthritis, right hand (principal); M79.89 Other specified soft tissue disorders

== ENCOUNTER → 2025-04-05 | Outpatient (CLI) | payer MEDICARE, OTHER ==
--- NOTE | 2025-04-05 16:29 | XR ---
EXAMINATION TYPE: XR Hip Complete RT DATE OF EXAM: 04/05/2025 3:57 PM COMPARISON: None CLINICAL INDICATION: Male, 84 years old with history of [id number] RT HIP PAIN; [facility], pain TECHNIQUE: XR Hip Complete RT; Frontal and lateral views FINDINGS: No evidence for acute process, joint dislocation or significant soft tissue swelling. Osteo phyte formation of the superior acetabulum of the hip. There is mild joint space narrowing. IMPRESSION: 1. No evidence for acute process. 2. 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 [facility], , 04/05/2025 4:27 PM
== END | disposition home or self-care (01) ==
LOC: RADXRYALE 15:10
PROVIDERS: ATTEND Family Medicine
DX: M16.11 Unilateral primary osteoarthritis, right hip (principal)
CPT/HCPCS: 73502